=== PATIENT | male | born 1985 | race Caucasian/White ===

== ENCOUNTER 2021-01-10 01:09 | Emergency (ER) | payer OTHER ==
[2021-01-10 01:18] VITALS: BP 112/67; PULSE 82; TEMP 97.8; BMI 29.2
[2021-01-10] MEDS ORDERED: DEXAMETHASONE SOD PHOSPHATE 10 MG/1 ML VIAL IM ONE (01:56)
[2021-01-10] MEDS ORDERED: DEXAMETHASONE SOD PHOSPHATE 10 MG/1 ML VIAL ONE (01:57)
== END 2021-01-10 02:23 | disposition home or self-care (01) ==
LOC: JER 01:09
PROC: 3E023GC Introduction of Other Therapeutic Substance into Muscle, Percutaneous Approach (ICD-10-PCS; principal; 2021-01-10)
DX: L23.7 Allergic contact dermatitis due to plants, except food (principal)
CPT/HCPCS: 99284-25; J1100

== ENCOUNTER 2023-11-26 01:50 | Emergency (ER) | payer OTHER ==
[2023-11-26 02:03] VITALS: BP 106/64; PULSE 65; RESP 20; TEMP 98.9; BMI 31.1
[2023-11-26] MEDS ORDERED: DIPHTH,PERTUSS(ACELL),TET 0.5 ML DISP.SYRIN IM ONE (03:38)
== END 2023-11-26 05:11 | disposition home or self-care (01) ==
LOC: JER 01:50
PROC: 0HQGXZZ Repair Left Hand Skin, External Approach (ICD-10-PCS; principal; 2023-11-26)
DX: S61.412A Laceration without foreign body of left hand, initial encounter (principal); W26.8XXA Contact with other sharp object(s), not elsewhere classified, initial encounter; Y99.0 Civilian activity done for income or pay
CPT/HCPCS: 99283-25

== ENCOUNTER 2023-12-04 13:53 | Emergency (ER) | payer OTHER ==
[2023-12-04 14:09] VITALS: BP 114/69; PULSE 60; RESP 18; TEMP 98.4; BMI 26.7
== END 2023-12-04 15:10 | disposition home or self-care (01) ==
LOC: JER 13:53 → JERFT 13:53
DX: Z48.02 Encounter for removal of sutures (principal)
CPT/HCPCS: 99281-25